=== PATIENT | male | born 1935 | race Caucasian/White ===

== ENCOUNTER 2017-12-24 12:33 | Inpatient (IN) ==
[2017-12-24] MEDS ORDERED: methylPREDNISolone SOD SUC 125 MG/2 ML VIAL IV STA (13:54)
[2017-12-24] MEDS ORDERED: FUROSEMIDE 100 MG/10 ML VIAL IV STA (13:54)
[2017-12-24] MEDS ORDERED: ONDANSETRON 4 MG/2 ML VIAL IV STA (13:54)
[2017-12-24] MEDS ORDERED: ALBUTEROL 2.5 MG/3 ML NEB RESP TX SCH (14:00)
[2017-12-24 14:11] LABS: INR 2.7
[2017-12-24 14:12] LABS: Basophils # 0.1 10*3/uL (0.0-0.2); Basophils % 1.1 % (0.0-0.8); Eosinophils # 0.1 10*3/uL (0.0-0.87); Eosinophils % 1.3 % (0.00-10.9); Immature Granulocytes % 0.2 %; Immature Granulocytes Absolute 0.01 #; Lymphocytes # 1.7 10*3/uL (1.4-4.0); Lymphocytes % 26.8 % (21.2-54.2); Mean Corpuscular Hemoglobin 23 PG (27-34); Mean Corpuscular Volume 75.1 FL (87-102); Mean Platelet Volume 9.7 FL (9.6-12.0); Monocytes # 0.5 10*3/uL (0.11-0.8); Monocytes % 8.3 % (1.7-12.7); Neutrophils % 62.3 % (38.7-73.9); Platelet Count 242 T/CUMM (130-400); Red Blood Count 6.26 MC/CUMM (3.8-5.5); White Blood Count 6.4 T/CUMM (4-12)
[2017-12-24 14:14] LABS: Hemoglobin 14.1 GM/DL (14.0-18.0)
[2017-12-24 14:15] LABS: PT Patient Result 27.8 SECS
[2017-12-24 14:24] LABS: Albumin 3.3 G/DL (3.4-5.0); Bilirubin,Total 0.8 MG/DL (0.2-1.0); Calcium 8.8 MG/DL (8.5-10.1); Osmolality,Calculated 284.4 MOS/KG (273-304); Potassium 4.1 MMOL/L (3.5-5.1); Total Protein 7.1 G/DL (6.4-8.3)
[2017-12-24] MEDS ORDERED: ONDANSETRON 4 MG/2 ML VIAL IV PRN (14:47)
[2017-12-24] MEDS ORDERED: PROMETHAZINE 25 MG/1 ML VIAL IM PRN (14:47)
[2017-12-24] MEDS ORDERED: BISACODYL 5 MG TABLET PO PRN (14:47)
[2017-12-24] MEDS ORDERED: ACETAMINOPHEN 325 MG TABLET PO PRN (14:47)
[2017-12-24] MEDS ORDERED: guaiFENesin/DM ER 600-30 MG TABLET PO PRN (14:47)
[2017-12-24] MEDS ORDERED: NALOXONE 0.4 MG/ML VIAL ONE (15:53)
[2017-12-24 16:04] LABS: % Iron Saturation 6.1 % (18-50); Ferritin 23.4 ng/ml (26-388)
[2017-12-24 16:43] LABS: ABG Base Excess 4.5 MMOL/L (-2.5-2.5); ABG HCO3 28.2 MMOL/L (20-26); ABG Oxygen Saturation 90.2 % (95-100); ABG PCO2 46.8 MM HG (35-48); ABG PH 7.416 (7.35-7.45); ABG PO2 60.2 MM HG (80-95); ABG TCO2 25.7 MMOL/L (23-27)
[2017-12-24] MEDS: cefTRIAXone 1,000 MG in SYRINGE 1 EACH IV SCH (17:00)
[2017-12-24] MEDS ORDERED: DEXTROSE 50% 25 GM/50 ML VIAL IV PRN (17:29)
[2017-12-24] MEDS ORDERED: GLUCAGON 1 MG VIAL IM PRN (17:29)
[2017-12-24 19:10] LABS: Folate 13.4 NG/ML (5.4-24.0)
[2017-12-24] MEDS: BUDESONIDE 0.25 MG/2 ML NEB RESP TX SCH (19:16)
[2017-12-24] MEDS: ALBUTEROL/IPRATROPIUM 3 ML NEB RESP TX SCH (19:16)
[2017-12-24] MEDS: methylPREDNISolone SOD SUC 125 MG/2 ML VIAL IV SCH (21:48)
[2017-12-24] MEDS: AZITHROMYCIN INJ 500 MG in SODIUM CHLORIDE 0.9% 250 ML IV SCH (21:59)
[2017-12-24] MEDS ORDERED: ZIPRASIDONE 20 MG/1 ML VIAL IM ONE (22:00)
[2017-12-24] MEDS: FLUTICASONE/SALMETEROL 250-50 DISKUS 14 DOSE INH SCH (22:00)
[2017-12-24] MEDS: MEMANTINE 10 MG TABLET PO SCH (22:03)
[2017-12-25] MEDS: ALBUTEROL/IPRATROPIUM 3 ML NEB RESP TX SCH ×3 (00:44→13:30)
[2017-12-25 04:32] LABS: INR 2.9
[2017-12-25 04:36] LABS: PT Patient Result 29.7 SECS
[2017-12-25 05:03] LABS: Basophils % 0.2 % (0.0-0.8); Hematocrit 44.2 VOL% (42.0-52.0); Hemoglobin 13.2 GM/DL (14.0-18.0); Immature Granulocytes % 0.4 %; Immature Granulocytes Absolute 0.02 #; Lymphocytes # 0.4 10*3/uL (1.4-4.0); Lymphocytes % 8.9 % (21.2-54.2); Mean Corpuscular HGB Conc 29.9 GM/DL (32-36); Mean Corpuscular Hemoglobin 23 PG (27-34); Mean Corpuscular Volume 76.6 FL (87-102); Mean Platelet Volume 10.2 FL (9.6-12.0); Monocytes % 0.8 % (1.7-12.7); Neutrophils # 4.4 10*3/uL (1.4-7.4); Neutrophils % 89.7 % (38.7-73.9); Platelet Count 203 T/CUMM (130-400); Red Blood Count 5.77 MC/CUMM (3.8-5.5); Red Cell Distribution Width 19.4 % (9.3-17.3); White Blood Count 4.9 T/CUMM (4-12)
[2017-12-25 05:06] LABS: Bilirubin,Total 0.7 MG/DL (0.2-1.0); Calcium 8.7 MG/DL (8.5-10.1); Potassium 4.2 MMOL/L (3.5-5.1); Risk Ratio 4.15; Total Protein 6.8 G/DL (6.4-8.3); VLDL CHOLESTEROL 17.4 MG/DL
[2017-12-25 05:51] LABS: Anisocytosis Slight; Band Neutrophils 8 % (0-10); Lymphocytes 9 % (20-55); Platelet Estimate Normal; Segmented Neutrophils 83 % (50-85); Total Cells Counted 100
[2017-12-25] MEDS: methylPREDNISolone SOD SUC 125 MG/2 ML VIAL IV SCH ×2 (06:34→09:10)
[2017-12-25] MEDS: cefTRIAXone 1,000 MG in SYRINGE 1 EACH IV SCH ×2 (06:39→16:49)
[2017-12-25] MEDS: BUDESONIDE 0.25 MG/2 ML NEB RESP TX SCH ×2 (06:52→23:24)
[2017-12-25 08:29] LABS: Apearance,Urine CLEAR (Clear); Bilirubin,Urine Negative (Negative); Blood, Urine Negative (Negative); Glucose,Urine (UA) >=500 mg/dL (Negative); Hyaline Casts,Urine 14 /LPF (0-3); Ketones,Urine Negative (Negative); Nitrite,Urine Negative (Negative); Protein,Urine Negative; RBC,Urine 1 /HPF (0-4); Urine Color Yellow (Yellow); Urine Specific Gravity 1.012 (1.001-1.035); Urine Urobilinogen < 2.0 EU/DL (0.2-1.0); WBC,Urine 3 /HPF (0-6)
[2017-12-25] MEDS ORDERED: VALSARTAN/HCTZ 160-12.5 MG TABLET PO SCH (09:00)
[2017-12-25] MEDS ORDERED: METOPROLOL TARTRATE 50 MG TABLET PO SCH (09:00)
[2017-12-25] MEDS: ALLOPURINOL 300 MG TABLET PO SCH (09:13)
[2017-12-25] MEDS: MEMANTINE 10 MG TABLET PO SCH ×2 (09:13→21:10)
[2017-12-25] MEDS: SERTRALINE 50 MG TABLET PO SCH (09:13)
[2017-12-25] MEDS: FOLIC ACID 1 MG TABLET PO SCH (09:13)
[2017-12-25] MEDS: PANTOPRAZOLE 40 MG TABLET PO SCH (09:13)
[2017-12-25] MEDS: CYANOCOBALAMIN 1000 MCG/1 ML VIAL IM SCH (09:16)
[2017-12-25] MEDS: FLUTICASONE/SALMETEROL 250-50 DISKUS 14 DOSE INH SCH ×2 (09:22→21:14)
[2017-12-25] MEDS: FERRIC GLUCONATE COMPLEX 62.5 MG in SODIUM CHLORIDE 0.9% 100 ML IV SCH (10:59)
[2017-12-25] MEDS: IPRATROPIUM 500 MCG/2.5 ML NEB RESP TX SCH ×2 (14:52→23:24)
[2017-12-25] MEDS: methylPREDNISolone SOD SUC 40 MG/1 ML VIAL IV SCH (16:47)
[2017-12-25] MEDS: WARFARIN 5 MG TABLET PO SCH (17:51)
[2017-12-25] MEDS ORDERED: INSULIN GLARGINE 100 UNIT/ML SUBCUT SCH (21:00)
[2017-12-25] MEDS: INSULIN GLARGINE 100 UNIT/ML SUBCUT SCH (21:10)
[2017-12-25] MEDS: AZITHROMYCIN INJ 500 MG in SODIUM CHLORIDE 0.9% 250 ML IV SCH (21:13)
[2017-12-26] MEDS: methylPREDNISolone SOD SUC 40 MG/1 ML VIAL IV SCH ×3 (01:22→16:40)
[2017-12-26 04:28] LABS: Hematocrit 44.4 VOL% (42.0-52.0); Red Blood Count 5.91 MC/CUMM (3.8-5.5); White Blood Count 12.3 T/CUMM (4-12)
[2017-12-26 04:29] LABS: Basophils % 0.2 % (0.0-0.8); Immature Granulocytes % 0.7 %; Immature Granulocytes Absolute 0.09 #; Lymphocytes # 0.6 10*3/uL (1.4-4.0); Lymphocytes % 4.7 % (21.2-54.2); Mean Corpuscular Hemoglobin 23 PG (27-34); Mean Corpuscular Volume 75.1 FL (87-102); Mean Platelet Volume 9.4 FL (9.6-12.0); Monocytes # 0.4 10*3/uL (0.11-0.8); Monocytes % 2.9 % (1.7-12.7); Neutrophils # 11.3 10*3/uL (1.4-7.4); Neutrophils % 91.5 % (38.7-73.9); Platelet Count 244 T/CUMM (130-400); Red Cell Distribution Width 19.9 % (9.3-17.3)
[2017-12-26] MEDS: cefTRIAXone 1,000 MG in SYRINGE 1 EACH IV SCH ×2 (04:39→15:27)
[2017-12-26 04:49] LABS: PT Patient Result 30.1 SECS
[2017-12-26 04:54] LABS: Albumin 3.3 G/DL (3.4-5.0); Bilirubin,Total 0.8 MG/DL (0.2-1.0); Calcium 8.7 MG/DL (8.5-10.1); Hemoglobin 13.3 GM/DL (14.0-18.0); Osmolality,Calculated 291.2 MOS/KG (273-304); Potassium 4.5 MMOL/L (3.5-5.1); Total Protein 6.8 G/DL (6.4-8.3)
[2017-12-26 05:03] LABS: Lymphocytes 7 % (20-55); Microcytosis 2+; Platelet Estimate Normal; Segmented Neutrophils 90 % (50-85); Total Cells Counted 100
[2017-12-26] MEDS: BUDESONIDE 0.25 MG/2 ML NEB RESP TX SCH ×2 (06:54→22:59)
[2017-12-26] MEDS: IPRATROPIUM 500 MCG/2.5 ML NEB RESP TX SCH ×3 (06:54→22:59)
[2017-12-26] MEDS: AZITHROMYCIN 250 MG TABLET PO SCH (08:43)
[2017-12-26] MEDS: MEMANTINE 10 MG TABLET PO SCH ×2 (08:43→21:08)
[2017-12-26] MEDS: PANTOPRAZOLE 40 MG TABLET PO SCH (08:43)
[2017-12-26] MEDS: FOLIC ACID 1 MG TABLET PO SCH (08:43)
[2017-12-26] MEDS: ALLOPURINOL 300 MG TABLET PO SCH (08:44)
[2017-12-26] MEDS: SERTRALINE 50 MG TABLET PO SCH (08:44)
[2017-12-26] MEDS: FERRIC GLUCONATE COMPLEX 62.5 MG in SODIUM CHLORIDE 0.9% 100 ML IV SCH (08:47)
[2017-12-26] MEDS: CYANOCOBALAMIN 1000 MCG/1 ML VIAL IM SCH (08:54)
[2017-12-26] MEDS: FLUTICASONE/SALMETEROL 250-50 DISKUS 14 DOSE INH SCH ×2 (08:54→21:08)
[2017-12-26] MEDS: INSULIN LISPRO 100 UNIT/ML SUBCUT SCH ×4 (09:13→21:10)
[2017-12-26] MEDS: SOTALOL 80 MG TABLET PO SCH ×2 (09:14→21:08)
[2017-12-26] MEDS: WARFARIN 5 MG TABLET PO SCH (17:14)
[2017-12-26] MEDS: INSULIN GLARGINE 100 UNIT/ML SUBCUT SCH (21:09)
[2017-12-27] MEDS: methylPREDNISolone SOD SUC 40 MG/1 ML VIAL IV SCH ×2 (02:30→09:12)
[2017-12-27] MEDS: cefTRIAXone 1,000 MG in SYRINGE 1 EACH IV SCH (04:37)
[2017-12-27 05:09] LABS: INR 2.9
[2017-12-27 05:10] LABS: PT Patient Result 29.4 SECS
[2017-12-27 05:19] LABS: Bilirubin,Total 0.4 MG/DL (0.2-1.0); Calcium 8.7 MG/DL (8.5-10.1); Osmolality,Calculated 294.7 MOS/KG (273-304); Potassium 4.5 MMOL/L (3.5-5.1); Total Protein 6.5 G/DL (6.4-8.3)
[2017-12-27 05:30] LABS: Hematocrit 43.2 VOL% (42.0-52.0); Hemoglobin 13.2 GM/DL (14.0-18.0); Immature Granulocytes % 0.7 %; Immature Granulocytes Absolute 0.08 #; Lymphocytes # 0.7 10*3/uL (1.4-4.0); Mean Corpuscular HGB Conc 30.6 GM/DL (32-36); Mean Corpuscular Hemoglobin 23 PG (27-34); Mean Corpuscular Volume 74.9 FL (87-102); Mean Platelet Volume 9.8 FL (9.6-12.0); Monocytes # 0.3 10*3/uL (0.11-0.8); Monocytes % 2.2 % (1.7-12.7); NRBC # 0.02 10*3/uL; Neutrophils # 10.1 10*3/uL (1.4-7.4); Neutrophils % 91.1 % (38.7-73.9); Platelet Count 240 T/CUMM (130-400); Red Blood Count 5.77 MC/CUMM (3.8-5.5); Red Cell Distribution Width 19.9 % (9.3-17.3); White Blood Count 11.1 T/CUMM (4-12)
[2017-12-27 06:33] LABS: Band Neutrophils 1 % (0-10); Hypochromasia 1+; Lymphocytes 5 % (20-55); Microcytosis 1+; Ovalocytes Slight; Platelet Estimate Adequate; Segmented Neutrophils 92 % (50-85); Total Cells Counted 100
[2017-12-27] MEDS: BUDESONIDE 0.25 MG/2 ML NEB RESP TX SCH (07:26)
[2017-12-27] MEDS: IPRATROPIUM 500 MCG/2.5 ML NEB RESP TX SCH (07:26)
[2017-12-27] MEDS ORDERED: DILTIAZEM CD 120 MG CAPSULE PO SCH (09:00)
[2017-12-27] MEDS: PANTOPRAZOLE 40 MG TABLET PO SCH (09:11)
[2017-12-27] MEDS: FOLIC ACID 1 MG TABLET PO SCH (09:11)
[2017-12-27] MEDS: MEMANTINE 10 MG TABLET PO SCH (09:11)
[2017-12-27] MEDS: ALLOPURINOL 300 MG TABLET PO SCH (09:11)
[2017-12-27] MEDS: SERTRALINE 50 MG TABLET PO SCH (09:11)
[2017-12-27] MEDS: CYANOCOBALAMIN 1000 MCG/1 ML VIAL IM SCH (09:12)
[2017-12-27] MEDS: AZITHROMYCIN 250 MG TABLET PO SCH (09:12)
[2017-12-27] MEDS: SOTALOL 80 MG TABLET PO SCH (09:12)
[2017-12-27] MEDS: INSULIN LISPRO 100 UNIT/ML SUBCUT SCH ×2 (09:13→12:38)
[2017-12-27] MEDS: FERRIC GLUCONATE COMPLEX 62.5 MG in SODIUM CHLORIDE 0.9% 100 ML IV SCH (09:13)
[2017-12-27] MEDS: FLUTICASONE/SALMETEROL 250-50 DISKUS 14 DOSE INH SCH (09:15)
[2017-12-27] MEDS ORDERED: ASCORBIC ACID 500 MG TABLET PO SCH (11:30)
[2017-12-27 12:41] VITALS: BP 100/85
== END 2017-12-27 13:30 | disposition home health service (06) | DRG 194 ==
LOC: N.ED 12:33 → SUATTDRO 14:47 → N.EDINP 14:47 → N.2E 16:58
PROVIDERS: ADMIT Internal Medicine; ATTEND Hospitalist

== ENCOUNTER 2018-03-24 16:41 | Inpatient (IN) ==
[2018-03-24] MEDS ORDERED: ALBUTEROL/IPRATROPIUM 3 ML NEB RESP TX STA (17:03)
[2018-03-24] MEDS ORDERED: FUROSEMIDE 100 MG/10 ML VIAL IV STA (17:03)
[2018-03-24 17:22] LABS: Basophils # 0.1 10*3/uL (0.0-0.2); Eosinophils # 0.1 10*3/uL (0.0-0.87); Eosinophils % 1.3 % (0.00-10.9); Hematocrit 53.6 VOL% (42.0-52.0); Hemoglobin 16.9 GM/DL (14.0-18.0); Immature Granulocytes % 0.3 %; Immature Granulocytes Absolute 0.02 #; Lymphocytes # 1.7 10*3/uL (1.4-4.0); Lymphocytes % 27.3 % (21.2-54.2); Mean Corpuscular HGB Conc 31.5 GM/DL (32-36); Mean Corpuscular Hemoglobin 27 PG (27-34); Mean Corpuscular Volume 84.7 FL (87-102); Mean Platelet Volume 9.7 FL (9.6-12.0); Monocytes # 0.4 10*3/uL (0.11-0.8); Monocytes % 6.7 % (1.7-12.7); Neutrophils # 3.9 10*3/uL (1.4-7.4); Neutrophils % 63.4 % (38.7-73.9); Platelet Count 200 T/CUMM (130-400); Red Blood Count 6.33 MC/CUMM (3.8-5.5); Red Cell Distribution Width 18.5 % (9.3-17.3); White Blood Count 6.1 T/CUMM (4-12)
[2018-03-24 17:38] LABS: INR 2.7; Partial Thromboplastin Time 39.5 SECS (0-40)
[2018-03-24 17:40] LABS: PT Patient Result 27.8 SECS
[2018-03-24 17:59] LABS: Albumin 3.5 G/DL (3.4-5.0); Bilirubin,Total 0.7 MG/DL (0.2-1.0); Calcium 8.6 MG/DL (8.5-10.1); Osmolality,Calculated 287.1 MOS/KG (273-304); Potassium 4.6 MMOL/L (3.5-5.1); Total Protein 7.2 G/DL (6.4-8.3)
[2018-03-24 18:26] LABS: Apearance,Urine CLEAR (Clear); Bilirubin,Urine Negative (Negative); Blood, Urine Negative (Negative); Glucose,Urine (UA) Negative (Negative); Hyaline Casts,Urine 1 /LPF (0-3); Ketones,Urine Negative (Negative); Nitrite,Urine Negative (Negative); Protein,Urine Negative; RBC,Urine 1 /HPF (0-4); Squamous Epithelial Cell,Urine Occasional /HPF (0-10); Urine Color Straw (Yellow); Urine Specific Gravity 1.005 (1.001-1.035); Urine Urobilinogen < 2.0 EU/DL (0.2-1.0); WBC,Urine 2 /HPF (0-6)
[2018-03-24 18:35] LABS: Barbiturates Screen,Urine Negative (Negative); Benzodiazepines Screen,Urine Negative (Negative); Cannabinoid Screen,Urine Negative (Negative); Opiate Screen,Urine Negative (Negative); Phencyclidine Screen,Urine Negative (Negative)
[2018-03-24] MEDS ORDERED: GLUCAGON 1 MG VIAL IM PRN ×2 (19:50→20:14)
[2018-03-24] MEDS ORDERED: DOCUSATE SODIUM 100 MG CAPSULE PO PRN (19:50)
[2018-03-24] MEDS ORDERED: LACTULOSE 20 GM/30 ML UDCUP PO PRN (19:50)
[2018-03-24] MEDS ORDERED: DEXTROSE 50% 25 GM/50 ML VIAL IV PRN ×2 (19:50→20:14)
[2018-03-24] MEDS ORDERED: ONDANSETRON 4 MG/2 ML VIAL IV PRN (19:50)
[2018-03-24] MEDS ORDERED: ACETAMINOPHEN 325 MG TABLET PO PRN (19:50)
[2018-03-24] MEDS ORDERED: traZODone 50 MG TABLET PO PRN (19:50)
[2018-03-24] MEDS ORDERED: ALBUTEROL/IPRATROPIUM 3 ML NEB RESP TX PRN (20:50)
[2018-03-24] MEDS: WARFARIN 5 MG TABLET PO SCH (22:17)
[2018-03-24] MEDS: SERTRALINE 50 MG TABLET PO SCH (22:17)
[2018-03-24] MEDS: MEMANTINE 10 MG TABLET PO SCH (22:17)
[2018-03-24] MEDS: POTASSIUM CHLORIDE 10 MEQ TABLET PO SCH (22:17)
[2018-03-24] MEDS: FUROSEMIDE 40 MG/4 ML VIAL IV SCH (22:19)
[2018-03-24] MEDS: INSULIN REGULAR 100 UNIT/ML SUBCUT SCH (22:35)
[2018-03-25 02:40] LABS: Basophils # 0.1 10*3/uL (0.0-0.2); Basophils % 1.1 % (0.0-0.8); Eosinophils # 0.1 10*3/uL (0.0-0.87); Eosinophils % 1.8 % (0.00-10.9); Hematocrit 54.6 VOL% (42.0-52.0); Hemoglobin 16.9 GM/DL (14.0-18.0); Immature Granulocytes % 0.2 %; Immature Granulocytes Absolute 0.01 #; Lymphocytes # 1.8 10*3/uL (1.4-4.0); Lymphocytes % 28.5 % (21.2-54.2); Mean Corpuscular Hemoglobin 26 PG (27-34); Mean Corpuscular Volume 84.5 FL (87-102); Mean Platelet Volume 9.5 FL (9.6-12.0); Monocytes # 0.5 10*3/uL (0.11-0.8); Monocytes % 8.4 % (1.7-12.7); Neutrophils # 3.8 10*3/uL (1.4-7.4); Platelet Count 190 T/CUMM (130-400); Red Blood Count 6.46 MC/CUMM (3.8-5.5); Red Cell Distribution Width 18.8 % (9.3-17.3); White Blood Count 6.3 T/CUMM (4-12)
[2018-03-25 02:50] LABS: INR 2.7
[2018-03-25 02:52] LABS: PT Patient Result 27.3 SECS
[2018-03-25 03:25] LABS: Potassium 3.7 MMOL/L (3.5-5.1)
[2018-03-25 03:26] LABS: Thyroid Stimulating Hormone 2.28 uIU/ml (0.358-3.74)
[2018-03-25] MEDS: INSULIN REGULAR 100 UNIT/ML SUBCUT SCH ×4 (09:56→21:08)
[2018-03-25] MEDS: POTASSIUM CHLORIDE 10 MEQ TABLET PO SCH ×2 (09:57→21:10)
[2018-03-25] MEDS: INSULIN NPH 100 UNIT/ML SUBCUT SCH ×2 (09:57→19:21)
[2018-03-25] MEDS: DILTIAZEM CD 240 MG CAPSULE PO SCH (09:57)
[2018-03-25] MEDS: MEMANTINE 10 MG TABLET PO SCH ×2 (09:58→21:10)
[2018-03-25] MEDS: METOPROLOL TARTRATE 50 MG TABLET PO SCH (09:58)
[2018-03-25] MEDS: PANTOPRAZOLE 40 MG TABLET PO SCH (09:58)
[2018-03-25] MEDS: ALLOPURINOL 300 MG TABLET PO SCH (09:58)
[2018-03-25] MEDS: SERTRALINE 50 MG TABLET PO SCH (09:58)
[2018-03-25] MEDS ORDERED: LOSARTAN 25 MG TABLET PO SCH (10:00)
[2018-03-25] MEDS: cefTRIAXone 2,000 MG in SYRINGE 1 EACH IV SCH (10:01)
[2018-03-25] MEDS: FUROSEMIDE 40 MG/4 ML VIAL IV SCH ×2 (10:07→21:07)
[2018-03-25] MEDS ORDERED: AZITHROMYCIN 250 MG TABLET PO ONE (11:52)
[2018-03-25] MEDS: ALBUTEROL/IPRATROPIUM 3 ML NEB RESP TX SCH ×2 (14:50→19:31)
[2018-03-25 18:34] LABS: ABG Base Excess 5.3 MMOL/L (-2.5-2.5); ABG HCO3 28.9 MMOL/L (20-26); ABG Oxygen Saturation 90.2 % (95-100); ABG PCO2 59.5 MM HG (35-48); ABG PH 7.359 (7.35-7.45); ABG PO2 59.6 MM HG (80-95); ABG TCO2 27.8 MMOL/L (23-27)
[2018-03-25 18:42] LABS: Folate > 24.0 NG/ML (5.4-24.0); Vitamin B12 848 PG/ML (211-911)
[2018-03-25] MEDS: WARFARIN 5 MG TABLET PO SCH (19:25)
[2018-03-26] MEDS: ALBUTEROL/IPRATROPIUM 3 ML NEB RESP TX SCH ×4 (01:20→19:00)
[2018-03-26 05:04] LABS: Basophils # 0.1 10*3/uL (0.0-0.2); Basophils % 0.9 % (0.0-0.8); Eosinophils # 0.1 10*3/uL (0.0-0.87); Hematocrit 52.4 VOL% (42.0-52.0); Hemoglobin 16.4 GM/DL (14.0-18.0); Immature Granulocytes % 0.6 %; Immature Granulocytes Absolute 0.04 #; Lymphocytes # 1.7 10*3/uL (1.4-4.0); Lymphocytes % 24.3 % (21.2-54.2); Mean Corpuscular HGB Conc 31.3 GM/DL (32-36); Mean Corpuscular Hemoglobin 27 PG (27-34); Mean Corpuscular Volume 85.3 FL (87-102); Monocytes # 0.6 10*3/uL (0.11-0.8); Monocytes % 9.4 % (1.7-12.7); Neutrophils # 4.3 10*3/uL (1.4-7.4); Neutrophils % 62.8 % (38.7-73.9); Platelet Count 185 T/CUMM (130-400); Red Blood Count 6.14 MC/CUMM (3.8-5.5); Red Cell Distribution Width 18.7 % (9.3-17.3); White Blood Count 6.8 T/CUMM (4-12)
[2018-03-26 05:07] LABS: Calcium 8.9 MG/DL (8.5-10.1); Osmolality,Calculated 289.1 MOS/KG (273-304); Potassium 3.7 MMOL/L (3.5-5.1)
[2018-03-26 05:11] LABS: INR 2.9
[2018-03-26 05:13] LABS: PT Patient Result 29.8 SECS
[2018-03-26 06:09] LABS: Risk Ratio 4.82; VLDL CHOLESTEROL 35.2 MG/DL
[2018-03-26] MEDS: INSULIN NPH 100 UNIT/ML SUBCUT SCH ×2 (07:36→17:11)
[2018-03-26] MEDS: AZITHROMYCIN 250 MG TABLET PO SCH (09:49)
[2018-03-26] MEDS: PANTOPRAZOLE 40 MG TABLET PO SCH (09:49)
[2018-03-26] MEDS: SERTRALINE 50 MG TABLET PO SCH (09:49)
[2018-03-26] MEDS: POTASSIUM CHLORIDE 10 MEQ TABLET PO SCH ×2 (09:50→20:35)
[2018-03-26] MEDS: DILTIAZEM CD 240 MG CAPSULE PO SCH (09:50)
[2018-03-26] MEDS: METOPROLOL TARTRATE 50 MG TABLET PO SCH (09:50)
[2018-03-26] MEDS: ALLOPURINOL 300 MG TABLET PO SCH (09:50)
[2018-03-26] MEDS: INSULIN REGULAR 100 UNIT/ML SUBCUT SCH ×4 (09:51→20:36)
[2018-03-26] MEDS: cefTRIAXone 2,000 MG in SYRINGE 1 EACH IV SCH (09:51)
[2018-03-26] MEDS: MEMANTINE 10 MG TABLET PO SCH ×2 (09:51→20:35)
[2018-03-26] MEDS: FUROSEMIDE 40 MG/4 ML VIAL IV SCH ×2 (09:51→20:38)
[2018-03-26] MEDS: WARFARIN 5 MG TABLET PO SCH (17:06)
[2018-03-27] MEDS: ALBUTEROL/IPRATROPIUM 3 ML NEB RESP TX SCH ×2 (00:20→08:29)
[2018-03-27 04:14] LABS: Allen Test Positive; Pt O2 Delivery Device Room Air
[2018-03-27 04:14] LABS: INR 3.4
[2018-03-27 04:15] LABS: PT Patient Result 34.1 SECS
[2018-03-27 04:16] LABS: ABG Base Excess 6.8 MMOL/L (-2.5-2.5); ABG HCO3 30.2 MMOL/L (20-26); ABG Oxygen Saturation 86.7 % (95-100); ABG PCO2 51.8 MM HG (35-48); ABG PH 7.417 (7.35-7.45); ABG PO2 50.4 MM HG (80-95); ABG TCO2 27.7 MMOL/L (23-27)
[2018-03-27 04:20] LABS: Basophils # 0.1 10*3/uL (0.0-0.2); Basophils % 0.9 % (0.0-0.8); Eosinophils # 0.1 10*3/uL (0.0-0.87); Eosinophils % 1.8 % (0.00-10.9); Hematocrit 52.4 VOL% (42.0-52.0); Hemoglobin 16.4 GM/DL (14.0-18.0); Immature Granulocytes % 0.1 %; Immature Granulocytes Absolute 0.01 #; Lymphocytes # 1.7 10*3/uL (1.4-4.0); Lymphocytes % 24.6 % (21.2-54.2); Mean Corpuscular HGB Conc 31.3 GM/DL (32-36); Mean Corpuscular Hemoglobin 26 PG (27-34); Mean Corpuscular Volume 84.2 FL (87-102); Mean Platelet Volume 10.5 FL (9.6-12.0); Monocytes # 0.6 10*3/uL (0.11-0.8); Monocytes % 8.7 % (1.7-12.7); Neutrophils # 4.3 10*3/uL (1.4-7.4); Neutrophils % 63.9 % (38.7-73.9); Platelet Count 187 T/CUMM (130-400); Red Blood Count 6.22 MC/CUMM (3.8-5.5); Red Cell Distribution Width 18.1 % (9.3-17.3); White Blood Count 6.8 T/CUMM (4-12)
[2018-03-27 04:47] LABS: Calcium 8.7 MG/DL (8.5-10.1); Osmolality,Calculated 281.5 MOS/KG (273-304); Potassium 3.5 MMOL/L (3.5-5.1)
[2018-03-27 08:03] VITALS: BP 108/73
[2018-03-27] MEDS: INSULIN REGULAR 100 UNIT/ML SUBCUT SCH (08:59)
[2018-03-27] MEDS: MEMANTINE 10 MG TABLET PO SCH (09:01)
[2018-03-27] MEDS: PANTOPRAZOLE 40 MG TABLET PO SCH (09:02)
[2018-03-27] MEDS: ALLOPURINOL 300 MG TABLET PO SCH (09:02)
[2018-03-27] MEDS: AZITHROMYCIN 250 MG TABLET PO SCH (09:02)
[2018-03-27] MEDS: DILTIAZEM CD 240 MG CAPSULE PO SCH (09:02)
[2018-03-27] MEDS: SERTRALINE 50 MG TABLET PO SCH (09:02)
[2018-03-27] MEDS: INSULIN NPH 100 UNIT/ML SUBCUT SCH (09:02)
[2018-03-27] MEDS: METOPROLOL TARTRATE 50 MG TABLET PO SCH (09:03)
[2018-03-27] MEDS: FUROSEMIDE 40 MG/4 ML VIAL IV SCH (09:03)
[2018-03-27] MEDS: POTASSIUM CHLORIDE 10 MEQ TABLET PO SCH (09:12)
[2018-03-27] MEDS: cefTRIAXone 2,000 MG in SYRINGE 1 EACH IV SCH (11:01)
== END 2018-03-27 11:41 | disposition home health service (06) | DRG 292 ==
LOC: N.ED 16:41 → N.EDINP 19:50 → N.TELEN 20:24
PROVIDERS: ADMIT Family Medicine; ATTEND Family Medicine

== ENCOUNTER 2019-09-01 17:52 | Inpatient (IN) ==
[2019-09-01 19:32] LABS: Basophils % 0.5 % (0.0-0.8); Eosinophils % 0.2 % (0.00-10.9); Hematocrit 52.4 VOL% (42.0-52.0); Hemoglobin 15.7 GM/DL (14.0-18.0); Immature Granulocytes % 0.5 %; Immature Granulocytes Absolute 0.02 #; Lymphocytes # 0.9 10*3/uL (1.4-4.0); Lymphocytes % 22.3 % (21.2-54.2); Mean Corpuscular Volume 79.4 FL (87-102); Mean Platelet Volume 9.4 FL (9.6-12.0); Monocytes % 6.3 % (1.7-12.7); Neutrophils % 70.2 % (38.7-73.9); Platelet Count 183 T/CUMM (130-400); White Blood Count 4.1 T/CUMM (4-12)
[2019-09-01 19:50] LABS: Alanine Aminotransferase 27 U/L (16-61); Albumin 3.1 G/DL (3.4-5.0); Alkaline Phosphatase 96 U/L (45-117); Aspartate Amino Transferase 62 U/L (0-37); Blood Urea Nitrogen 19 MG/DL (7-18); Calcium 8.8 MG/DL (8.5-10.1); Estimated Glom Filtration Rate 60 ML/MIN; Glucose 60 MG/DL (74-106); Total Protein 7.4 G/DL (6.4-8.3); Troponin I 0.018 NG/ML (0.00-0.045)
[2019-09-01 20:46] LABS: Apearance,Urine CLEAR (Clear); Bilirubin,Urine Negative (Negative); Blood, Urine Negative (Negative); Glucose,Urine (UA) Negative (Negative); Hyaline Casts,Urine 11 /LPF (0-3); Ketones,Urine Negative (Negative); Mucus,Urine Occasional /LPF (Occasional); Nitrite,Urine Negative (Negative); Protein,Urine Negative; Urine Color Yellow (Yellow); Urine Specific Gravity 1.013 (1.001-1.035); Urine Urobilinogen < 2.0 EU/DL (0.2-1.0)
[2019-09-01] MEDS ORDERED: DEXTROSE 50% 25 GM/50 ML VIAL IV STA (20:49)
[2019-09-01] MEDS ORDERED: AZITHROMYCIN 250 MG TABLET PO STA (21:02)
[2019-09-01] MEDS ORDERED: cefTRIAXone 1,000 MG in SODIUM CHLORIDE 0.9% 100 ML IV STA (21:02)
[2019-09-01] MEDS ORDERED: HYDROXYCHLOROQUINE 200 MG TABLET PO ONE ×2 (21:03→21:55)
[2019-09-01] MEDS ORDERED: DEXTROSE 50% 25 GM/50 ML SYRINGE IV ONE (21:48)
[2019-09-01] MEDS ORDERED: ONDANSETRON 4 MG/2 ML VIAL IV PRN (22:50)
[2019-09-01] MEDS ORDERED: GLUCAGON 1 MG VIAL IM PRN (22:50)
[2019-09-01] MEDS ORDERED: ACETAMINOPHEN 325 MG TABLET PO PRN (22:50)
[2019-09-01] MEDS ORDERED: DEXTROSE 50% 25 GM/50 ML SYRINGE IV PRN (22:50)
[2019-09-02] MEDS: INSULIN REGULAR 100 UNIT/ML SUBCUT SCH ×4 (00:51→17:26)
[2019-09-02] MEDS: AZITHROMYCIN 250 MG TABLET PO SCH (08:55)
[2019-09-02] MEDS: DOCUSATE SODIUM 100 MG CAPSULE PO SCH ×2 (08:55→20:45)
[2019-09-02] MEDS: PANTOPRAZOLE 40 MG TABLET PO SCH (08:55)
[2019-09-02] MEDS: DILTIAZEM CD 240 MG CAPSULE PO SCH (10:33)
[2019-09-02] MEDS ORDERED: traZODone 50 MG TABLET PO PRN (11:55)
[2019-09-02] MEDS ORDERED: DOCUSATE SODIUM 100 MG CAPSULE PO PRN (11:55)
[2019-09-02 13:28] LABS: Calcium 8.5 MG/DL (8.5-10.1); Osmolality,Calculated 266.5 MOS/KG (273-304)
[2019-09-02 16:36] LABS: INR 3.6; PT Patient Result 35.8 SECS (9.8-11.9)
[2019-09-02] MEDS: METOPROLOL TARTRATE 50 MG TABLET PO SCH (17:54)
[2019-09-02] MEDS: MEMANTINE 10 MG TABLET PO SCH (20:45)
[2019-09-02] MEDS: MAGNESIUM CHLORIDE 64 MG TABLET PO SCH (20:45)
[2019-09-02] MEDS: FUROSEMIDE 40 MG TABLET PO SCH (20:45)
[2019-09-02] MEDS: POTASSIUM CHLORIDE 10 MEQ TABLET PO SCH (20:45)
[2019-09-02] MEDS ORDERED: HYDROXYCHLOROQUINE 200 MG TABLET PO ONE (21:00)
[2019-09-02] MEDS ORDERED: HALOPERIDOL 5 MG/ML AMP IM PRN (22:29)
[2019-09-03] MEDS: INSULIN REGULAR 100 UNIT/ML SUBCUT SCH ×4 (03:19→18:12)
[2019-09-03 07:12] LABS: INR 2.2
[2019-09-03 07:16] LABS: PT Patient Result 22.3 SECS (9.8-11.9)
[2019-09-03 07:17] LABS: Osmolality,Calculated 272.1 MOS/KG (273-304)
[2019-09-03 07:39] LABS: Basophils % 0.5 % (0.0-0.8); Hematocrit 50.8 VOL% (42.0-52.0); Hemoglobin 15.2 GM/DL (14.0-18.0); Immature Granulocytes % 0.5 %; Immature Granulocytes Absolute 0.02 #; Lymphocytes % 24.9 % (21.2-54.2); Mean Corpuscular HGB Conc 29.9 GM/DL (32-36); Mean Corpuscular Volume 79.3 FL (87-102); Mean Platelet Volume 9.4 FL (9.6-12.0); Monocytes % 5.3 % (1.7-12.7); Neutrophils % 68.8 % (38.7-73.9); Platelet Count 209 T/CUMM (130-400); Red Blood Count 6.41 MC/CUMM (3.8-5.5); Red Cell Distribution Width 19.8 % (9.3-17.3); White Blood Count 3.9 T/CUMM (4-12)
[2019-09-03] MEDS ORDERED: FUROSEMIDE 20 MG TABLET ONE (07:50)
[2019-09-03 08:16] LABS: Anisocytosis Slight; Band Neutrophils 8 % (0-10); Lymphocytes 19 % (20-55); Platelet Estimate Normal; Segmented Neutrophils 66 % (50-85); Total Cells Counted 100
[2019-09-03 08:17] LABS: Smudge Cells Few
[2019-09-03] MEDS ORDERED: METOPROLOL TARTRATE 50 MG TABLET PO SCH (09:00)
[2019-09-03] MEDS: HYDROXYCHLOROQUINE 200 MG TABLET PO SCH ×2 (11:05→20:25)
[2019-09-03] MEDS: PANTOPRAZOLE 40 MG TABLET PO SCH (11:06)
[2019-09-03] MEDS: MAGNESIUM CHLORIDE 64 MG TABLET PO SCH ×2 (11:06→20:25)
[2019-09-03] MEDS: POTASSIUM CHLORIDE 10 MEQ TABLET PO SCH ×2 (11:06→20:25)
[2019-09-03] MEDS: METOPROLOL TARTRATE 50 MG TABLET PO SCH (11:07)
[2019-09-03] MEDS: DILTIAZEM CD 240 MG CAPSULE PO SCH (11:07)
[2019-09-03] MEDS: DOCUSATE SODIUM 100 MG CAPSULE PO SCH ×2 (11:08→20:25)
[2019-09-03] MEDS: FUROSEMIDE 40 MG TABLET PO SCH ×2 (11:08→20:25)
[2019-09-03] MEDS: MEMANTINE 10 MG TABLET PO SCH ×2 (11:09→20:25)
[2019-09-03] MEDS: AZITHROMYCIN 250 MG TABLET PO SCH (11:09)
[2019-09-03] MEDS: allopurinoL 300 MG TABLET PO SCH (11:14)
[2019-09-03] MEDS: VITAMIN E 1000 UNIT CAPSULE PO SCH (11:14)
[2019-09-03] MEDS: SERTRALINE 50 MG TABLET PO SCH (11:15)
[2019-09-03] MEDS: WARFARIN 5 MG TABLET PO SCH (20:25)
[2019-09-04] MEDS: INSULIN REGULAR 100 UNIT/ML SUBCUT SCH ×4 (00:50→18:15)
[2019-09-04 04:00] LABS: INR 2.2
[2019-09-04 04:02] LABS: PT Patient Result 22.9 SECS (9.8-11.9)
[2019-09-04 04:20] LABS: Calcium 8.3 MG/DL (8.5-10.1); Osmolality,Calculated 284.7 MOS/KG (273-304)
[2019-09-04 04:27] LABS: Basophils % 0.9 % (0.0-0.8); Eosinophils # 0.1 10*3/uL (0.0-0.87); Eosinophils % 1.9 % (0.00-10.9); Hematocrit 47.6 VOL% (42.0-52.0); Hemoglobin 14.5 GM/DL (14.0-18.0); Immature Granulocytes % 0.2 %; Immature Granulocytes Absolute 0.01 #; Lymphocytes # 1.1 10*3/uL (1.4-4.0); Lymphocytes % 24.7 % (21.2-54.2); Mean Corpuscular HGB Conc 30.5 GM/DL (32-36); Mean Corpuscular Volume 78.8 FL (87-102); Neutrophils % 66.3 % (38.7-73.9); Platelet Count 201 T/CUMM (130-400); Red Blood Count 6.04 MC/CUMM (3.8-5.5); Red Cell Distribution Width 19.5 % (9.3-17.3); White Blood Count 4.3 T/CUMM (4-12)
[2019-09-04 04:45] LABS: Eosinophils 2 % (0-10); Lymphocytes 27 % (20-55); Platelet Estimate Adequate; Segmented Neutrophils 63 % (50-85); Total Cells Counted 100
[2019-09-04 04:46] LABS: Atypical Lymphocytes Few; Hypochromasia 1+
[2019-09-04 08:04] LABS: Ferritin 102.1 ng/ml (26-388)
[2019-09-04] MEDS: DILTIAZEM CD 240 MG CAPSULE PO SCH (10:59)
[2019-09-04] MEDS: POTASSIUM CHLORIDE 10 MEQ TABLET PO SCH ×2 (11:01→20:10)
[2019-09-04] MEDS: FUROSEMIDE 40 MG TABLET PO SCH ×2 (11:01→20:10)
[2019-09-04] MEDS: METOPROLOL TARTRATE 50 MG TABLET PO SCH (11:01)
[2019-09-04] MEDS: DOCUSATE SODIUM 100 MG CAPSULE PO SCH ×2 (11:01→20:10)
[2019-09-04] MEDS: MEMANTINE 10 MG TABLET PO SCH ×2 (11:02→20:10)
[2019-09-04] MEDS: SERTRALINE 50 MG TABLET PO SCH (11:03)
[2019-09-04] MEDS: MAGNESIUM CHLORIDE 64 MG TABLET PO SCH ×2 (11:03→20:10)
[2019-09-04] MEDS: PANTOPRAZOLE 40 MG TABLET PO SCH (11:03)
[2019-09-04] MEDS: VITAMIN E 1000 UNIT CAPSULE PO SCH (11:03)
[2019-09-04] MEDS: ZINC SULFATE 220 MG CAPSULE PO SCH (11:03)
[2019-09-04] MEDS: AZITHROMYCIN 250 MG TABLET PO SCH (11:03)
[2019-09-04] MEDS: allopurinoL 300 MG TABLET PO SCH (11:03)
[2019-09-04] MEDS: WARFARIN 5 MG TABLET PO SCH (20:10)
[2019-09-05] MEDS: INSULIN REGULAR 100 UNIT/ML SUBCUT SCH ×4 (00:03→21:07)
[2019-09-05 04:54] LABS: Osmolality,Calculated 282.5 MOS/KG (273-304)
[2019-09-05 05:21] LABS: INR 2.7; PT Patient Result 27.8 SECS (9.8-11.9)
[2019-09-05 05:29] LABS: Basophils % 0.7 % (0.0-0.8); Eosinophils # 0.1 10*3/uL (0.0-0.87); Eosinophils % 1.7 % (0.00-10.9); Hematocrit 52.5 VOL% (42.0-52.0); Hemoglobin 15.6 GM/DL (14.0-18.0); Immature Granulocytes % 0.2 %; Immature Granulocytes Absolute 0.01 #; Lymphocytes # 1.3 10*3/uL (1.4-4.0); Lymphocytes % 23.7 % (21.2-54.2); Mean Corpuscular HGB Conc 29.7 GM/DL (32-36); Mean Platelet Volume 9.4 FL (9.6-12.0); Monocytes % 6.3 % (1.7-12.7); Neutrophils % 67.4 % (38.7-73.9); Platelet Count 247 T/CUMM (130-400); Red Blood Count 6.56 MC/CUMM (3.8-5.5); Red Cell Distribution Width 19.7 % (9.3-17.3); White Blood Count 5.4 T/CUMM (4-12)
[2019-09-05 05:39] LABS: Eosinophils 1 % (0-10); Lymphocytes 16 % (20-55); Platelet Estimate Adequate; Segmented Neutrophils 77 % (50-85); Total Cells Counted 100
[2019-09-05 05:40] LABS: Hypochromasia Slight
[2019-09-05] MEDS: allopurinoL 300 MG TABLET PO SCH (08:12)
[2019-09-05] MEDS: PANTOPRAZOLE 40 MG TABLET PO SCH (08:12)
[2019-09-05] MEDS: AZITHROMYCIN 250 MG TABLET PO SCH (08:12)
[2019-09-05] MEDS: DILTIAZEM CD 240 MG CAPSULE PO SCH (08:13)
[2019-09-05] MEDS: METOPROLOL TARTRATE 50 MG TABLET PO SCH (08:13)
[2019-09-05] MEDS: MAGNESIUM CHLORIDE 64 MG TABLET PO SCH ×2 (08:13→21:07)
[2019-09-05] MEDS: VITAMIN E 1000 UNIT CAPSULE PO SCH (08:13)
[2019-09-05] MEDS: POTASSIUM CHLORIDE 10 MEQ TABLET PO SCH ×2 (08:13→21:07)
[2019-09-05] MEDS: FUROSEMIDE 40 MG TABLET PO SCH ×2 (08:13→21:07)
[2019-09-05] MEDS: MEMANTINE 10 MG TABLET PO SCH ×2 (08:13→21:07)
[2019-09-05] MEDS: DOCUSATE SODIUM 100 MG CAPSULE PO SCH ×2 (08:13→21:07)
[2019-09-05] MEDS: SERTRALINE 50 MG TABLET PO SCH (08:14)
[2019-09-05] MEDS ORDERED: DILTIAZEM CD 120 MG CAPSULE PO ONE (15:00)
[2019-09-05] MEDS: HYDROXYCHLOROQUINE 200 MG TABLET PO SCH ×2 (15:14→21:07)
[2019-09-05] MEDS: WARFARIN 5 MG TABLET PO SCH (21:07)
[2019-09-06 06:49] LABS: INR 4.7
[2019-09-06] MEDS: INSULIN REGULAR 100 UNIT/ML SUBCUT SCH ×4 (06:53→18:09)
[2019-09-06 06:58] LABS: PT Patient Result 46.1 SECS (9.8-11.9)
[2019-09-06] MEDS: PANTOPRAZOLE 40 MG TABLET PO SCH (09:18)
[2019-09-06] MEDS: DOCUSATE SODIUM 100 MG CAPSULE PO SCH ×2 (09:19→20:15)
[2019-09-06] MEDS: allopurinoL 300 MG TABLET PO SCH (09:19)
[2019-09-06] MEDS: AZITHROMYCIN 250 MG TABLET PO SCH (09:19)
[2019-09-06] MEDS: POTASSIUM CHLORIDE 10 MEQ TABLET PO SCH ×2 (09:19→20:14)
[2019-09-06] MEDS: SERTRALINE 50 MG TABLET PO SCH (09:19)
[2019-09-06] MEDS: MAGNESIUM CHLORIDE 64 MG TABLET PO SCH ×2 (09:19→20:14)
[2019-09-06] MEDS: FUROSEMIDE 40 MG TABLET PO SCH ×2 (09:20→20:15)
[2019-09-06] MEDS: ZINC SULFATE 220 MG CAPSULE PO SCH (09:20)
[2019-09-06] MEDS: VITAMIN E 1000 UNIT CAPSULE PO SCH (09:20)
[2019-09-06] MEDS: MEMANTINE 10 MG TABLET PO SCH ×2 (09:20→20:14)
[2019-09-06] MEDS: METOPROLOL TARTRATE 50 MG TABLET PO SCH (09:20)
[2019-09-06] MEDS: HYDROXYCHLOROQUINE 200 MG TABLET PO SCH ×2 (09:21→20:14)
[2019-09-06] MEDS: DILTIAZEM CD 180 MG CAPSULE PO SCH (09:50)
[2019-09-07] MEDS: INSULIN REGULAR 100 UNIT/ML SUBCUT SCH ×3 (00:19→12:48)
[2019-09-07] MEDS: FUROSEMIDE 40 MG TABLET PO SCH (08:58)
[2019-09-07] MEDS: HYDROXYCHLOROQUINE 200 MG TABLET PO SCH (08:58)
[2019-09-07] MEDS: MAGNESIUM CHLORIDE 64 MG TABLET PO SCH (08:58)
[2019-09-07] MEDS: DOCUSATE SODIUM 100 MG CAPSULE PO SCH (08:59)
[2019-09-07] MEDS: MEMANTINE 10 MG TABLET PO SCH (08:59)
[2019-09-07] MEDS: SERTRALINE 50 MG TABLET PO SCH (08:59)
[2019-09-07] MEDS: allopurinoL 300 MG TABLET PO SCH (08:59)
[2019-09-07] MEDS: METOPROLOL TARTRATE 50 MG TABLET PO SCH (08:59)
[2019-09-07] MEDS: VITAMIN E 1000 UNIT CAPSULE PO SCH (08:59)
[2019-09-07] MEDS: POTASSIUM CHLORIDE 10 MEQ TABLET PO SCH (09:00)
[2019-09-07] MEDS: DILTIAZEM CD 180 MG CAPSULE PO SCH (09:22)
[2019-09-07 11:00] LABS: Calcium 8.9 MG/DL (8.5-10.1); Osmolality,Calculated 282.8 MOS/KG (273-304)
[2019-09-07 11:02] LABS: Basophils # 0.1 10*3/uL (0.0-0.2); Basophils % 1.3 % (0.0-0.8); Eosinophils # 0.1 10*3/uL (0.0-0.87); Eosinophils % 1.5 % (0.00-10.9); Hematocrit 52.7 VOL% (42.0-52.0); Immature Granulocytes % 0.7 %; Immature Granulocytes Absolute 0.03 #; Lymphocytes # 0.8 10*3/uL (1.4-4.0); Mean Corpuscular HGB Conc 29.8 GM/DL (32-36); Mean Platelet Volume 8.9 FL (9.6-12.0); Monocytes % 6.2 % (1.7-12.7); Neutrophils % 73.3 % (38.7-73.9); Platelet Count 271 T/CUMM (130-400); Red Blood Count 6.51 MC/CUMM (3.8-5.5); Red Cell Distribution Width 19.8 % (9.3-17.3); White Blood Count 4.5 T/CUMM (4-12)
[2019-09-07 11:03] LABS: Hemoglobin 15.7 GM/DL (14.0-18.0)
[2019-09-07 12:56] VITALS: BP 135/89
== END 2019-09-07 15:43 | disposition home health service (06) | DRG 177 ==
LOC: EDBD → EDUNIT# → N.ED 17:52 → N.EDINP 21:04 → N.2W 22:30
PROVIDERS: ADMIT Family Medicine; ATTEND Family Medicine